=== PATIENT | female | born 1930 | race Caucasian/White ===

== ENCOUNTER 2017-03-14 12:45 | Emergency (ER) | payer MEDICARE, OTHER ==
[2016-01-19 14:59] VITALS: BMI 29.3
[~2017-03-14 12:45] MED LIST: CELEXA10 MG PO; CITRACAL + D E1 EACH PO; COZAAR100 MG PO; HYDROCODONE-APA1 TAB PO; HYDROXYUREA500 MG PO; LESCOL XL80 MG PO; NORVASC10 MG PO; PRILOSEC20 MG PO; SYNTHROID25 MCG PO; TYLENOL W/CODEI1 TAB PO; VITAMIN D31000 UNIT PO; ZOFRAN4 MG PO
== END 2017-03-14 16:49 | disposition home or self-care (01) ==
LOC: D.ER 12:45
DX: S16.1XXA Strain of muscle, fascia and tendon at neck level, initial encounter (principal); W19.XXXA Unspecified fall, initial encounter; Y93.89 Activity, other specified; Y92.89 Other specified places as the place of occurrence of the external cause; S39.012A Strain of muscle, fascia and tendon of lower back, initial encounter; S43.402A Unspecified sprain of left shoulder joint, initial encounter; C50.919 Malignant neoplasm of unspecified site of unspecified female breast; I10 Essential (primary) hypertension

== ENCOUNTER 2018-08-15 09:30 | Emergency (ER) | payer MEDICARE, OTHER ==
[~2018-08-15] VITALS: Ht 154.9 cm; Wt 72.7 kg
[2018-08-15 09:36] VITALS: Ht 154.9 cm; Wt 72.7 kg
[2018-08-15] MEDS ORDERED: ELIQUIS5 MG PO (09:37)
[2018-08-15] MEDS ORDERED: TYLENOL W/CODEI1 TAB PO (12:31)
[2018-08-15 13:02] VITALS: BP 180/92
== END 2018-08-15 13:03 | disposition home or self-care (01) ==
LOC: D.ER 09:30
DX: S09.90XA Unspecified injury of head, initial encounter (principal); W18.30XA Fall on same level, unspecified, initial encounter; Y93.89 Activity, other specified; Y92.019 Unspecified place in single-family (private) house as the place of occurrence of the external cause; S52.121A Displaced fracture of head of right radius, initial encounter for closed fracture; M25.521 Pain in right elbow; I10 Essential (primary) hypertension; J44.9 Chronic obstructive pulmonary disease, unspecified; S41.111A Laceration without foreign body of right upper arm, initial encounter

== ENCOUNTER 2018-08-18 10:13 | Emergency (ER) | payer MEDICARE, OTHER ==
[~2018-08-18] VITALS: Ht 154.9 cm; Wt 72.7 kg
[~2018-08-18 10:13] MED LIST changes: +ELIQUIS5 MG PO
[2018-08-18 10:19] VITALS: Ht 154.9 cm; Wt 72.7 kg
[2018-08-18] MEDS ORDERED: TYLENOL W/CODEI1 TAB PO (11:21)
== END 2018-08-18 12:22 | disposition home or self-care (01) ==
LOC: D.ER 10:13
DX: S52.121A Displaced fracture of head of right radius, initial encounter for closed fracture (principal); W18.30XA Fall on same level, unspecified, initial encounter; Y93.89 Activity, other specified; Y92.019 Unspecified place in single-family (private) house as the place of occurrence of the external cause; S60.211A Contusion of right wrist, initial encounter; R22.31 Localized swelling, mass and lump, right upper limb; I10 Essential (primary) hypertension; J44.9 Chronic obstructive pulmonary disease, unspecified

== ENCOUNTER → 2018-10-27 13:40 | Outpatient (CLI) | payer MEDICARE, OTHER ==
[2018-08-18 10:19] VITALS: BMI 30.3
== END | disposition home or self-care (01) ==
LOC: D.US 13:30
DX: R22.32 Localized swelling, mass and lump, left upper limb (principal)

== ENCOUNTER 2019-08-31 18:22 | Emergency (ER) | payer MEDICARE, OTHER ==
[~2019-08-31] VITALS: Ht 154.9 cm; Wt 99.8 kg
[2019-08-31 18:24] VITALS: Ht 154.9 cm; Wt 99.8 kg
[2019-08-31 18:52] LABS: BASOPHILS 0.6 % (0-2); EOSINOPHILS 0 % (0-7); HEMATOCRIT 28.2 % (36.0-48.0); HEMOGLOBIN 8.8 g/dL (12-16); IMMATURE GRANULOCYTES 6.3 % (0-5); LYMPHOCYTES 17.2 % (15-50); MCH 35.2 pg (26.0-34.0); MCHC 31.2 g/dL (31.0-37.0); MCV 112.8 fL (80.0-100.0); MONOCYTES 12.9 % (2-11); RDW 24.5 % (11.5-14.5); WBC 3.2 10x3/uL (4.8-10.8)
[2019-08-31 18:54] LABS: PLATELET COUNT 227 10x3/uL (130-400)
[2019-08-31 19:07] LABS: CALC OSMOLALITY 280 mosm/kg (275-300); CALCIUM 8.8 mg/dL (8.5-10.1); CARBON DIOXIDE 26.8 mmol/L (21.0-32.0); CHLORIDE - SERUM 104 mmol/L (98-107); CREATININE - SERUM 0.6 mg/dL (0.6-1.3); GLUCOSE 120 mg/dL (74-106); POTASSIUM - SERUM 3.6 mmol/L (3.5-5.1); SODIUM 141 mmol/L (136-145); UREA NITROGEN 10 mg/dL (7-18); eGFR NON AFRICAN AMERICAN > 90 mL/min (90-120)
[2019-08-31 19:22] LABS: ALBUMIN 3.5 g/dL (3.4-5.0); ALKALINE PHOSPHATASE 104 U/L (46-116); ALT (SGPT) 16 U/L (10-68); BILIRUBIN - TOTAL 0.56 mg/dL (0.2-1.3); CKMB 1.2 U/L (0.0-3.6); CREATINE KINASE 43 UL (21-215); MAGNESIUM - SERUM 1.9 mg/dL (1.8-2.4); PRO BNP 2658 pg/mL (0-450); PROTEIN - SERUM 6.8 g/dL (6.4-8.2); TROPONIN-I < 0.017 ng/mL (0.000-0.060)
[2019-08-31 21:54] LABS: % SATURATION 35 % (15-55); IRON 98 ug/dl (35-150); TOTAL IRON BIND CAPACITY 274 ug/dl (260-445); UNSAT IRON BIND CAPACITY 176 ug/dl (150-375)
[2019-08-31 22:15] VITALS: BP 191/83
== END 2019-08-31 22:16 | disposition home or self-care (01) ==
LOC: D.ER 18:22
PROVIDERS: Emergency Medicine; Family Medicine
DX: D64.9 Anemia, unspecified (principal); R53.1 Weakness; I10 Essential (primary) hypertension; R10.11 Right upper quadrant pain; J44.9 Chronic obstructive pulmonary disease, unspecified; R06.81 Apnea, not elsewhere classified

== ENCOUNTER → 2019-09-06 08:43 | Outpatient (CLI) | payer MEDICARE, OTHER ==
[2019-08-31 18:24] VITALS: BMI 30.3
== END | disposition home or self-care (01) ==
LOC: D.US 08:43
PROVIDERS: ATTEND Family Medicine
DX: R10.11 Right upper quadrant pain (principal)

== ENCOUNTER 2019-09-11 10:16 | Outpatient (CLI) | payer MEDICARE, OTHER ==
[~2019-09-11] VITALS: Ht 154.9 cm; Wt 65.9 kg
[2019-09-11 12:19] VITALS: BP 183/68; Ht 154.9 cm; Wt 65.9 kg
--- NOTE | 2019-09-11 14:29 | NUR ---
1410 RECIEVING FIRST UNIT PRBC'S. BP ELEVATED TO 236/106. TURNED BLOOD DOWN TO 75 ML/HR. CALLED DR ANN'S OFFICE FOR ORDERS.
--- NOTE | 2019-09-11 14:42 | NUR ---
SPOKE WITH PERFECTO PERLA AT DR DIAZ OFFICE. NEW ORDERS RECIEVED. REPORTED OFF TO MADONNA FERNANDO RN WHOSE IS TAKING OVER PATIENT. WILL GIVE CLONIDINE AND LASIX PER ORDERS AND CONTINUE TO MONITOR.
--- NOTE | 2019-09-11 18:22 | NUR ---
1830 IV REMOVED AND PRESSURE HELD. BRUISING AROUND RIGHT HAND AND SMALL AMOUNT ON TONGUE. VOIDED FREQUENTLY EVERY 5-10 MINUTES. FAMILY AT BEDSIDE. INSTRUCTIONS GIVEN
== END 2019-09-11 18:48 | disposition home or self-care (01) ==
LOC: D.CT 10:16
PROVIDERS: ATTEND Internal Medicine Hematology & Oncology
DX: D64.9 Anemia, unspecified (principal); K92.2 Gastrointestinal hemorrhage, unspecified